=== PATIENT | female | born 1995 | race Caucasian/White ===

== ENCOUNTER 2023-11-17 11:54 | Emergency (ER) | payer BC, MEDICAID | END 2023-11-17 14:09 | disposition home or self-care (01) | LOC: JP.ED 11:54 | DX: R07.89 Other chest pain (principal); E11.9 Type 2 diabetes mellitus without complications | CPT/HCPCS: 36415; 71046; 71046-26; 84484; 85379; 93005; 93010; 99285 ==

== ENCOUNTER 2024-06-16 07:52 | Day surgery (SDC) | payer MEDICAID ==
[~2024-06-16 07:52] MED LIST: Midazolam 1 MG/ML 2 ML SDV ONE; Propofol 200 MG/20 ML SDV ONE; fentaNYL 50 MCG/ML SDV ONE
[2024-06-16] MEDS: Lactated Ringers 1,000 ML IV SCH (08:27)
[2024-06-16] MEDS ORDERED: Propofol 200 MG/20 ML SDV ONE (08:43)
== END 2024-06-16 10:20 | disposition home or self-care (01) ==
LOC: JP.SDS 07:52
PROVIDERS: ATTEND Surgery
DX: K21.9 Gastro-esophageal reflux disease without esophagitis (principal); J45.909 Unspecified asthma, uncomplicated; E66.01 Morbid (severe) obesity due to excess calories
CPT/HCPCS: 00731-QZ; 87081; 88305; J2250; J2704; J3010; J7120

== ENCOUNTER 2024-07-07 15:56 | Emergency (ER) | payer MEDICAID ==
[2024-07-07 18:16] LABS: BASOPHILS ABSOLUTE AUTO 0.03 K/uL (0.00-0.10); BASOPHILS PERCENT AUTO 0.3 % (0.1-1.3); EOSINOPHILS ABSOLUTE AUTO 0.09 K/uL (0.00-0.40); EOSINOPHILS PERCENT AUTO 0.8 % (0.0-5.4); HEMATOCRIT 39.7 % (34.3-46.0); HEMOGLOBIN 13.1 g/dL (11.2-15.5); IMMATURE GRAN ABSOLUTE AUTO 0.03 K/uL (0.00-0.23); IMMATURE GRAN PERCENT AUTO 0.3 % (0.0-0.7); LYMPHOCYTES ABSOLUTE AUTO 2.16 K/uL (0.8-3.3); LYMPHOCYTES PERCENT AUTO 18.4 % (11.4-47.7); MEAN CORPUSCULAR HEMOGLOBIN 29.5 pg (31.6-35.5); MEAN CORPUSCULAR VOLUME 89.4 fL (81.4-99.0); MONOCYTES ABSOLUTE AUTO 0.68 K/uL (0.20-0.90); MONOCYTES PERCENT AUTO 5.8 % (3.3-12.6); NEUTROPHILS ABSOLUTE AUTO 8.75 K/uL (1.0-7.6); NEUTROPHILS PERCENT AUTO 74.4 % (40.0-78.1); PLATELET COUNT,PLT 261 K/uL (130-375); RED BLOOD CELL COUNT 4.44 M/uL (3.77-5.24); WHITE BLOOD CELL COUNT,WBC 11.7 K/uL (3.2-11.0)
[2024-07-07 18:18] LABS: APPEARANCE,URINE CLOUDY (CLEAR); BILIRUBIN,URINE NEGATIVE (NEGATIVE); COLOR,URINE YELLOW (YELLOW); GLUCOSE,URINE NEGATIVE (NEGATIVE); KETONES,URINE 15 mg/dL (NEGATIVE); LEUKOCYTE ESTERASE,URINE NEGATIVE (NEGATIVE); NITRITE,URINE NEGATIVE (NEGATIVE); OCCULT BLOOD,URINE NEGATIVE (NEGATIVE); PH,URINE 5.5 (5.0-8.0); PROTEIN,URINE NEGATIVE (NEGATIVE); UROBILINOGEN,URINE 0.2 EU/dL (0.2-1.0)
[2024-07-07 18:27] LABS: AMORPHOUS SEDIMENT,URINE FEW; BACTERIA,URINE MANY; EPITHELIAL CELLS,URINE MANY; MUCUS,URINE MANY; RBC,URINE 0-5 (0-5); WBC,URINE 0-5 (0-5)
[2024-07-07 18:29] LABS: AMPHETAMINES SCREEN, URINE NEGATIVE (NEGATIVE); BARBITURATE SCREEN,URINE NEGATIVE (NEGATIVE); BENZODIAZEPINES SCREEN,URINE NEGATIVE (NEGATIVE); METHADONE SCREEN, URINE NEGATIVE (NEGATIVE); METHAMPHETAMINES SCREEN, URINE NEGATIVE (NEGATIVE); OXYCODONE SCREEN,URINE NEGATIVE (NEGATIVE); PROPOXYPHENE SCREEN,URINE NEGATIVE (NEGATIVE); THC SCREEN,URINE 50 NG/ML PRESUMPTIVE POSITIVE (NEGATIVE)
[2024-07-07 18:37] LABS: ALANINE AMINOTRANSFERASE,ALT 21 U/L (12-78); ALBUMIN 3.8 g/dL (3.4-5.0); ALKALINE PHOSPHATASE 65 U/L (46-116); ANION GAP 8.9 mmol/L (5.0-14.0); ASPARTATE AMNIOTRANSFERASE,AST 15 U/L (15-37); BILIRUBIN TOTAL 0.5 mg/dL (0.2-1.0); BLOOD UREA NITROGEN,BUN 17 mg/dL (7-18); CALCIUM 8.7 mg/dL (8.5-10.1); CARBON DIOXIDE,CO2 27 mmol/L (21-32); CHLORIDE,CL 105 mmol/L (100-108); CREATININE 0.8 mg/dL (0.6-1.0); EST CRCL DRUG DOSING (CG) 92.53 mL/min; ESTIMATED GFR 102 mL/min (>60); GLUCOSE RANDOM 82 mg/dL (74-106); POTASSIUM,K 3.9 mmol/L (3.6-5.2); PROTEIN TOTAL,TP 7.6 g/dL (6.4-8.2); SODIUM,NA 141 mmol/L (140-148)
[2024-07-07 18:44] LABS: C-REACTIVE PROTEIN 0.7 mg/dL (<0.50)
[2024-07-07] MEDS: Alum Hydrox/Mag Hydrox/Simeth 15 ML, Lidocaine 2% 15 ML PO ONE (18:47)
[2024-07-07] MEDS: Ketorolac 30 MG/ML SDV IVPUSH ONE (18:54)
[2024-07-07] MEDS: Iopamidol 612 MG/ML 100 ML Bottle IV SCH (20:10)
[2024-07-07] MEDS: Sodium Chloride 0.9% 80 ML IV SCH (20:10)
== END 2024-07-07 21:00 | disposition home or self-care (01) ==
LOC: JP.ED 15:56
DX: R10.9 Unspecified abdominal pain (principal); R10.817 Generalized abdominal tenderness; Z86.16 Personal history of COVID-19
CPT/HCPCS: 36415; 74177; 80053; 80305; 81001; 83690; 85025; 86140; 96374; 99284; A9270; J1885; Q9967

== ENCOUNTER 2024-11-21 07:32 | Inpatient (IN) | payer MEDICAID ==
[~2024-11-21 07:32] MED LIST changes: +Cyclobenzaprine 10 MG Tab PO ONE; -Midazolam 1 MG/ML 2 ML SDV ONE; -Propofol 200 MG/20 ML SDV ONE; -fentaNYL 50 MCG/ML SDV ONE
[2024-11-21] MEDS: Cyclobenzaprine 5 MG Tab PO ONE (07:57)
[2024-11-21 08:02] LABS: HEMATOCRIT 42.1 % (34.3-46.0); HEMOGLOBIN 14.1 g/dL (11.2-15.5); MEAN CORPUSCULAR HEMOGLOBIN 30.3 pg (31.6-35.5); MEAN CORPUSCULAR HGB CONC 33.5 g/dL (31.6-35.5); MEAN CORPUSCULAR VOLUME 90.5 fL (81.4-99.0); RED BLOOD CELL COUNT 4.65 M/uL (3.77-5.24); WHITE BLOOD CELL COUNT,WBC 7.2 K/uL (3.2-11.0)
[2024-11-21] MEDS: Heparin Sodium 5,000 Units/ML Vial SUBCUT ONE (08:02)
[2024-11-21] MEDS ORDERED: Ondansetron 4 MG/2 ML SDV ONE (08:21)
[2024-11-21] MEDS ORDERED: Succinylcholine 200 MG/10 ML MDV ONE (08:21)
[2024-11-21] MEDS ORDERED: Glycopyrrolate 0.2 MG/ML 5 ML MDV ONE (08:21)
[2024-11-21] MEDS ORDERED: fentaNYL 250 MCG/5 ML SDV ONE (08:21)
[2024-11-21] MEDS ORDERED: Rocuronium 50 MG/5 ML Vial ONE ×2 (08:21→11:38)
[2024-11-21] MEDS ORDERED: Dexamethasone 4 MG/ML SDV ONE ×2 (08:21→10:22)
[2024-11-21] MEDS ORDERED: Propofol 200 MG/20 ML SDV ONE (08:21)
[2024-11-21] MEDS ORDERED: Neostigmine Methylsulfate 10 MG/10 ML MDV ONE (08:21)
[2024-11-21 08:22] LABS: ALANINE AMINOTRANSFERASE,ALT 23 U/L (12-78); ALKALINE PHOSPHATASE 67 U/L (46-116); ASPARTATE AMNIOTRANSFERASE,AST 13 U/L (15-37); BILIRUBIN TOTAL 0.8 mg/dL (0.2-1.0); BLOOD UREA NITROGEN,BUN 17 mg/dL (7-18); CALCIUM 9.3 mg/dL (8.5-10.1); CARBON DIOXIDE,CO2 24 mmol/L (21-32); CHLORIDE,CL 103 mmol/L (100-108); EST CRCL DRUG DOSING (CG) 74.02 mL/min; ESTIMATED GFR 78 mL/min (>60); GLUCOSE RANDOM 96 mg/dL (74-106); POTASSIUM,K 4.1 mmol/L (3.6-5.2); PROTEIN TOTAL,TP 8.2 g/dL (6.4-8.2); SODIUM,NA 138 mmol/L (140-148)
[2024-11-21] MEDS ORDERED: ceFAZolin 2 GM in Sodium Chloride 0.9% 50 ML IV ONE (08:30)
[2024-11-21] MEDS: Lactated Ringers 1,000 ML IV SCH (08:36)
[2024-11-21] MEDS: Acetaminophen 1,000 MG in Premix Bag 1 BAG IV ONE (08:37)
[2024-11-21 08:43] LABS: ANION GAP 15.1 mmol/L (5.0-14.0)
[2024-11-21] MEDS: ceFAZolin 2 GM in Premix Bag 1 BAG IV ONE (10:05)
[2024-11-21] MEDS ORDERED: Ketorolac 30 MG/ML SDV ONE (10:22)
[2024-11-21] MEDS ORDERED: Ketamine 500 MG/5 ML MDV ONE (10:24)
[2024-11-21] MEDS: Bupivacaine 0.5% 50 ML MDV ONE (10:56)
[2024-11-21] MEDS: Bupivacaine 0.5%/EPINEPHrine 1:200,000 50 ML MDV ONE (10:56)
[2024-11-21] MEDS ORDERED: fentaNYL 100 MCG/2 ML SDV ONE ×2 (12:08→12:22)
[2024-11-21] MEDS ORDERED: Lactated Ringers 1,000 ML ONE (12:23)
[2024-11-21] MEDS ORDERED: oxyCODONE 5 MG Tab PO PRN (13:08)
[2024-11-21] MEDS: Ondansetron 4 MG/2 ML SDV IV PRN (13:39)
[2024-11-21] MEDS: Ketorolac 15 MG/ML SDV IVPUSH SCH (13:48)
[2024-11-21] MEDS ORDERED: Cyclobenzaprine 10 MG Tab PO SCH (14:00)
[2024-11-21] MEDS: Cyclobenzaprine 5 MG Tab PO SCH (15:11)
[2024-11-21] MEDS: Acetaminophen 1,000 MG in Premix Bag 1 BAG IV SCH (15:49)
[2024-11-21] MEDS: Promethazine 12.5 MG in Sodium Chloride 0.9% 50 ML IV PRN (20:22)
[2024-11-21] MEDS: Sodium Chloride 0.9% 1,000 ML IV SCH (20:23)
[2024-11-22] MEDS: Heparin Sodium 5,000 Units/ML Vial SUBCUT SCH (05:29)
[2024-11-22] MEDS: Pantoprazole 40 MG Vial IV SCH (08:17)
[2024-11-22] MEDS: Docusate Sodium 100 MG Cap PO SCH (08:18)
[2024-11-22] MEDS: MVI, Adult with Vitamin K 10 ML, Thiamine 100 MG, Folic Acid 1 MG, Magnesium Sulf 1 GM/... IV ONE (09:31)
[2024-11-22] MEDS: Iopamidol 612 MG/ML 30 ML SDV PO ONE (10:12)
== END 2024-11-22 13:20 | disposition home or self-care (01) | DRG 620 ==
LOC: JP.SDS 07:32 → JP.MS 13:03
PROVIDERS: ADMIT Surgery; ATTEND Surgery
PROC: 0DB64Z3 Excision of Stomach, Percutaneous Endoscopic Approach, Vertical (ICD-10-PCS; principal; 2024-11-21 09:00)
DX: E66.01 Morbid (severe) obesity due to excess calories (principal); F33.1 Major depressive disorder, recurrent, moderate; Z77.22 Contact with and (suspected) exposure to environmental tobacco smoke (acute) (chronic); F41.9 Anxiety disorder, unspecified; Z68.41 Body mass index [BMI] 40.0-44.9, adult; Z90.722 Acquired absence of ovaries, bilateral; Z98.890 Other specified postprocedural states
CPT/HCPCS: 36415; 74240; 74240-26; 80053; 85027; 88307; A9270-GY; C1763; J0131; J0330; J0665; J0690; J1100; J1596; J1644; J1885; J2405; J2470; J2550; J2704; J2710; J3010; J3411; J3490; J7030; J7120; Q9967